=== PATIENT | male | born 1985 ===

== ENCOUNTER → 2018-03-23 | Emergency (ER) | payer MEDICAID ==
[~2018-03-23] MED LIST: ACET500T68 PO; AMOX-362 PO; CLAR-1 PO; CYCL10TA29 PO; DICY-42 PO; FAMOTIDINE(*) 20MG/50ML PREMIX 50 ML IVPB ONE; HYDR-385 PO; HYDR-4309 PO; IBUP800T37 PO; IOPAMIDOL 76% 100 ML INFUS BTL 0 ML ONE; IOPAMIDOL 76% 100 ML INFUS BTL 100 ML ONE; KET10 PO; LOR5/325 PO; MAG HYD/AL HYD/SIMETH 30ML UDC PO ONE; MORPHINE 4 MG/ML SDV IVP ONE; NS(*) 0.9% 1000 ML BAG 1,000 ML IV ONE; ONDA4TAB97 PO; ONDANSETRON 4 MG/2 ML VIAL IVP ONE; PANT40TA65 PO; [UNRECOGNIZED DRUG - CODE] TP
--- NOTE | 2018-03-23 13:22 | ER Report ---
History and Physical Time Seen By MD: 13:22 (HAWA BECERRA MD) HPI/ROS CHIEF COMPLAINT: Abdominal pain HISTORY OF PRESENT ILLNESS: Patient is a 32-year-old male who denies any significant past medical history presents to the emergency department with complaint of severe epigastric abdominal pain without radiation that began sometime this morning. He states he has no prior similar episodes of this type of discomfort. States he's never had any abdominal surgery. He states the pain began 1st and then was followed by nausea with some vomiting. He denies any antibiotic use or recent travel history. He denies any chest pain or shortness of breath. Patient is an occasional smoker but denies any alcohol use. REVIEW OF SYSTEMS: Constitutional: No fever, no chills. Eyes: No discharge. ENT: No sore throat. Cardiovascular: No chest pain, no palpitations. Respiratory: No cough, no shortness of breath. Gastrointestinal: Epigastric abdominal pain associated with nausea and vomiting no diarrhea. Genitourinary: No hematuria. Musculoskeletal: No back pain. Skin: No rashes. Neurological: No headache. (HAWA BECERRA MD) Allergies: Coded Allergies: No Known Drug Allergies (Unverified , 03/23/18) Home Meds Active Scripts Amoxicillin (AMOXICILLIN) 500 Mg Capsule, 2 CAP PO BID for 14 Days, #28 CAPSULE 0 Refills TAKE ONE CAPSULE BY MOUTH EVERY 8 HOURS Prov:HAWA BECERRA MD 03/23/18 Clarithromycin (CLARITHROMYCIN) 500 Mg Tablet, 500 MG PO BID, #28 TAB 0 Refills Prov:HAWA BECERRA MD 03/23/18 Pantoprazole Sodium (PANTOPRAZOLE SODIUM) 40 Mg Tablet.dr, 40 MG PO BID for 14 Days, #28 TAB.SR 0 Refills Prov:HAWA BECERRA MD 03/23/18 Ketorolac Tromethamine (KETOROLAC TROMETHAMINE) 10 Mg Tab, 10 MG PO Q6H, #20 TAB Prov:ANGELINA SANTACRUZ 06/01/17 Cyclobenzaprine Hcl (CYCLOBENZAPRINE HCL) 10 Mg Tablet, 5-10 MG PO TID Y for MUSCLE SPASMS, #9 TAB Prov:ANGELINA SANTACRUZ 06/01/17 Past Medical/Surgical History Noncontributory towards this chief complaint (HAWA BECERRA MD) Smoking Status: Former Smoker Hx Substance Use Disorder: Yes (occ pot) Hx Alcohol Use: No (HAWA BECERRA MD) Constitutional Vital Sign - Last 24 Hours 03/23/18 03/23/18 03/23/18 03/23/18 13:24 13:28 13:30 13:36 Temp 97.9 Pulse 88 84 Resp 24 B/P (MAP) 144/109 (121) 144/109 119/95 (103) Pulse Ox 99 95 O2 Delivery Room Air Room Air 03/23/18 03/23/18 13:45 13:51 Pulse 50 B/P (MAP) 124/82 (96) Pulse Ox 98 O2 Delivery Room Air Intake and Output 03/23/18 03/23/18 03/24/18 15:00 23:00 07:00 Intake Total 1050 ml Balance 1050 ml (LAURORA,EMILY V DO) Physical Exam General Appearance: The patient is alert, has no immediate need for airway protection and no signs of toxicity. Eyes: Pupils equal and round no pallor or injection. ENT, Mouth: Mucous membranes are moist. Respiratory: There are no retractions, lungs are clear to auscultation. Cardiovascular: Regular rate and rhythm. Gastrointestinal: Epigastric abdominal pain with voluntary guarding no obvious rebound tenderness elicited. Neurological: Awake and alert Skin: Warm and dry, no rashes. Musculoskeletal: Neck is supple non tender. Extremities are nontender, nonswollen and have full range of motion. (HAWA BECERRA MD) Medical Decision Making Data Points Result Diagram: 03/23/18 1330 03/23/18 1330 Laboratory Hematology Test 03/23/18 13:30 Red Blood Count 5.87 M/uL (4.00-5.60) Mean Corpuscular Volume 85.6 fL (80.0-96.0) Mean Corpuscular Hemoglobin 30.2 pg (26.0-33.0) Mean Corpuscular Hemoglobin Concent 35.3 g/dL (32.0-36.0) Red Cell Distribution Width 13.8 % (11.5-14.5) Mean Platelet Volume 8.7 fL (7.2-11.1) Neutrophils (%) (Auto) 87.6 % (39.4-72.5) Lymphocytes (%) (Auto) 9.3 % (17.6-49.6) Monocytes (%) (Auto) 2.0 % (4.1-12.4) Eosinophils (%) (Auto) 0.0 % (0.4-6.7) Basophils (%) (Auto) 1.1 % (0.3-1.4) Nucleated RBC Relative Count (auto) 0.1 /100WBC Neutrophils # (Auto) 11.9 K/uL (2.0-7.4) Lymphocytes # (Auto) 1.3 K/uL (1.3-3.6) Monocytes # (Auto) 0.3 K/uL (0.3-1.0) Eosinophils # (Auto) 0.0 K/uL (0.0-0.5) Basophils # (Auto) 0.1 K/uL (0.0-0.1) Nucleated RBC Absolute Count (auto) 0.01 K/uL Sodium Level 139 mmol/L (137-145) Potassium Level 4.1 mmol/L (3.5-5.0) Chloride Level 103 mmol/L (98-107) Carbon Dioxide Level 19 mmol/L (22-30) Blood Urea Nitrogen 12 mg/dl (9-21) Creatinine 0.80 mg/dl (0.66-1.25) Glomerular Filtration Rate Calc > 60.0 Random Glucose 155 mg/dl (75-110) Calcium Level 10.0 mg/dl (8.4-10.2) Total Bilirubin 0.5 mg/dl (0.2-1.3) Aspartate Amino Transf (AST/SGOT) 26 U/L (0-35) Alanine Aminotransferase (ALT/SGPT) 22 U/L (0-56) Alkaline Phosphatase 161 U/L (0-126) Total Protein 8.5 g/dl (6.3-8.2) Albumin 5.1 g/dl (3.5-5.0) Lipase 59 U/L (23-300) Helicobacter pylori IgG Antibody Positive (NEGATIVE) Chemistry Test 03/23/18 13:30 White Blood Count 13.6 k/uL (4.5-11.0) Red Blood Count 5.87 M/uL (4.00-5.60) Hemoglobin 17.7 g/dL (14.0-18.0) Hematocrit 50.3 % (42.0-52.0) Mean Corpuscular Volume 85.6 fL (80.0-96.0) Mean Corpuscular Hemoglobin 30.2 pg (26.0-33.0) Mean Corpuscular Hemoglobin Concent 35.3 g/dL (32.0-36.0) Red Cell Distribution Width 13.8 % (11.5-14.5) Platelet Count 309 K/uL (150-450) Mean Platelet Volume 8.7 fL (7.2-11.1) Neutrophils (%) (Auto) 87.6 % (39.4-72.5) Lymphocytes (%) (Auto) 9.3 % (17.6-49.6) Monocytes (%) (Auto) 2.0 % (4.1-12.4) Eosinophils (%) (Auto) 0.0 % (0.4-6.7) Basophils (%) (Auto) 1.1 % (0.3-1.4) Nucleated RBC Relative Count (auto) 0.1 /100WBC Neutrophils # (Auto) 11.9 K/uL (2.0-7.4) Lymphocytes # (Auto) 1.3 K/uL (1.3-3.6) Monocytes # (Auto) 0.3 K/uL (0.3-1.0) Eosinophils # (Auto) 0.0 K/uL (0.0-0.5) Basophils # (Auto) 0.1 K/uL (0.0-0.1) Nucleated RBC Absolute Count (auto) 0.01 K/uL Glomerular Filtration Rate Calc > 60.0 Calcium Level 10.0 mg/dl (8.4-10.2) Total Bilirubin 0.5 mg/dl (0.2-1.3) Aspartate Amino Transf (AST/SGOT) 26 U/L (0-35) Alanine Aminotransferase (ALT/SGPT) 22 U/L (0-56) Alkaline Phosphatase 161 U/L (0-126) Total Protein 8.5 g/dl (6.3-8.2) Albumin 5.1 g/dl (3.5-5.0) Lipase 59 U/L (23-300) Helicobacter pylori IgG Antibody Positive (NEGATIVE) (EMILY BEEBE DO) ED Course/Re-evaluation ED Course 03/23/2018 1:43:14 pm plan at this time will to be place an IV. We will give IV Zofran, IV morphine and IV Pepcid. We will draw labs for CBC CMP and lipase. We will perform a CT scan of the abdomen and pelvis. Decision to Disposition Date: Mar 24, 2018 Decision to Disposition Time: 17:00 (HAWA BECERRA MD) ED Course 03/23/2018 4:03:12 pm Pt signed out to me pending CT evaluation. Pts ct is stable. Pt does have H pylori which will require treatment as well as follow up for egd. Decision to Disposition Date: Mar 23, 2018 Decision to Disposition Time: 16:03 (EMILY BEEBE DO) Depart Departure Latest Vital Signs Vital Signs Date Time Temp Pulse Resp B/P (MAP) Pulse Ox O2 Delivery O2 Flow Rate FiO2 03/23/18 13:51 50 98 Room Air 03/23/18 13:45 124/82 (96) 03/23/18 13:28 97.9 24 (EMILY BEEBE DO) Impression: Primary Impression: Helicobacter pylori gastritis Condition: Improved Disposition: HOME OR SELF-CARE Referrals: JORGE ALBERTO JESUS MD 5 Days New Scripts Amoxicillin (AMOXICILLIN) 500 Mg Capsule 2 CAP PO BID for 14 Days, #28 CAPSULE 0 Refills TAKE ONE CAPSULE BY MOUTH EVERY 8 HOURS Prov: HAWA BECERRA MD 03/23/18 Clarithromycin (CLARITHROMYCIN) 500 Mg Tablet 500 MG PO BID, #28 TAB 0 Refills Prov: HAWA BECERRA MD 03/23/18 Pantoprazole Sodium (PANTOPRAZOLE SODIUM) 40 Mg Tablet. 40 MG PO BID for 14 Days, #28 TAB.SR 0 Refills Prov: HAWA BECERRA MD 03/23/18 Patient Instructions: Helicobacter Pylori (GEN) Additional Instructions: You have bacteria in your stomach which causes painful stomach ulcerations. We are starting you on antibiotics as well as medication to help your ulcers. Follow up with Dr. Jesus to obtain a scope your stomach when able. Return as needed. HAWA BECERRA MD Mar 23, 2018 13:22 EMILY BEEBE DO Mar 23, 2018 16:05
[2018-03-23 13:45] VITALS: BP 124/82
[2018-03-23 13:50] LABS: PLATELET COUNT, AUTOMATED 309 K/uL (150-450)
--- NOTE | 2018-03-23 15:37 | RADIOLOGY IMAGING REPORT ---
FACILITY: [facility] PATIENT NAME: Ye Elmore : 1985 MR: [id number] V: [id number] EXAM DATE: ORDERING PHYSICIAN: HAWA BECERRA TECHNOLOGIST: Location: [facility] [place] Patient: Ye Elmore : 1985 Visit/Account:[id number] Date of Sevice: 03/23/2018 EXAMINATION: CT abdomen and pelvis with IV contrast HISTORY: Epigastric pain. TECHNIQUE: Axial CT images of the abdomen and pelvis were obtained with IV contrast, with coronal a nd sagittal 2D reconstructed images. One of the following dose optimization techniques was utilized in the performance of this exam: Autom ated exposure control; adjustment of the mA and/or kV according to the patient's size; or use of an i terative reconstruction technique. Specific details can be referenced in the facility's radiology C T exam operational policy. Contrast: 75 mL of IV [id number]. COMPARISON: None. FINDINGS: Liver: Negative. Gallbladder and bile ducts: Negative. Spleen: Negative. Pancreas: Negative. Adrenal glands: Negative. Kidneys: Negative. No hydronephrosis or urinary calculi. Bowel and peritoneum: The small bowel and colon are normal in caliber, without evidence of obstructi on or any focal inflammatory process. No localized bowel wall thickening. Unremarkable appendix. No f ree fluid or free intraperitoneal air. Pelvic structures: Negative. Lymph node assessment: Negative. Vessels: Negative. Musculoskeletal: Negative. Body wall: Negative. Lung bases: Negative. IMPRESSION: 1. No CT evidence of acute intra-abdominal pathology. No source of abdominal pain is identified. 2. The small bowel and colon are unremarkable by CT, including the appendix. Report Dictated By: Tommie Luna MD at 03/23/2018 3:29 PM Report E-Signed By: Tommie Luna MD at 03/23/2018 3:34 PM [id number]
== END ==
LOC: ER 13:24
DX: K29.60 Other gastritis without bleeding (principal); B96.81 Helicobacter pylori [H. pylori] as the cause of diseases classified elsewhere; Z87.891 Personal history of nicotine dependence
CPT/HCPCS: 74177; 83690; 85025; 86677; 96374; 96375; 99284; J2270; J2405; J3490; J7030; Q9967; 82040; 82247; 82310; 82374; 82435; 82565; 82947; 84075; 84132; 84155; 84295; 84450; 84460; 84520